=== PATIENT | female | born 1970 | race Caucasian/White ===

== ENCOUNTER → 2017-05-03 | Outpatient (CLI) | payer OTHER | LOC: BRMIMAGING 12:56 | PROVIDERS: ATTEND Registered Nurse | DX: Z12.31 Encounter for screening mammogram for malignant neoplasm of breast (principal) | CPT/HCPCS: G0202 ==

== ENCOUNTER → 2017-05-09 | Outpatient (CLI) | payer OTHER | LOC: BRMIMAGING 08:53 | PROVIDERS: ATTEND Registered Nurse | DX: N60.02 Solitary cyst of left breast (principal) | CPT/HCPCS: 76641-PO; G0206 ==